=== PATIENT | male | born 1940 | race Caucasian/White ===

== ENCOUNTER 2016-12-08 05:26 | Emergency (ER) | payer MEDICARE ==
[2016-12-08] MEDS ORDERED: LORAZEPAM 2 MG/ML SOL IV ONE (05:40)
[2016-12-08] MEDS ORDERED: LORAZEPAM 2 MG/ML SOL ONE (05:41)
[2016-12-08] MEDS: SODIUM CHLORIDE 0.9% FLUSH 10 ML SOL IV PRN ×2 (05:44→06:06)
[2016-12-08] MEDS ORDERED: SOLUMEDROL 125 MG/2 ML 125 MG/2 ML PDS IV ONE (05:54)
[2016-12-08] MEDS ORDERED: SOLUMEDROL 125 MG/2 ML 125 MG/2 ML PDS ONE (06:01)
[2016-12-08 06:15] LABS: BASOPHILS % (AUTO) 1 % (0-3); EOSINOPHILS % (AUTO) 7 % (0-9); HEMATOCRIT 37 % (39-53); MEAN CORPUSCULAR HGB CONC 36.7 gm/dl (32.0-36.0); MONOCYTES % (AUTO) 6.9 % (0-12); NEUTROPHILS % (AUTO) 65.5 % (37-80)
[2016-12-08 06:25] LABS: CALCIUM 8.2 mg/dl (8.5-10.1); POTASSIUM 3.6 mMol/L (3.5-5.1)
[2016-12-08 06:47] VITALS: BP 139/94; PULSE 73; RESP 20; TEMP 98.3; O2SAT 96
== END 2016-12-08 07:33 | disposition home or self-care (01) | DRG 192 ==
LOC: ED 05:26
DX: J44.1 Chronic obstructive pulmonary disease with (acute) exacerbation (principal)
CPT/HCPCS: 36415; 71020; 80048; 85025; 99284; J2060; J2930